=== PATIENT | male | born 1960 | race African-American/Black ===

== ENCOUNTER 2016-09-30 16:58 | Inpatient (IN) | payer OTHER ==
[2016-09-30 19:06] VITALS: BMI 26.5
--- NOTE | 2016-09-30 19:41 | HP ---
COWS - Scale Resting Pulse: 1= [place] 81-100 Sweatin= Chills/Flushing Restless Observation: 3= Extraneous Movement Pupil Size: 0= Normal to Room Light Bone or Joint Aches: 2= Severe Diffuse Aches Runny Nose/ Eye Tearin= Runny Nose/Eyes GI Upset > 30mins: 3= Vomiting/Diarrhea Tremor Observation: 2= Slight Tremor Visible Yawning Observation: 1= 1-2x During Session Anxiety or Irritability: 2=Irritable/Anxious Goose Flesh Skin: 0=Smooth Skin COWS Score: 17 Admission ROS S - [facility] Chief Complaint: WITHDRAWAL SX Allergies/Adverse Reactions: Allergies Allergy/AdvReac Type Severity Reaction Status Date / Time No Known Allergies Allergy Verified 09/30/16 19:38 History of Present Illness: 56 YEARS OLD MALE WITH LONG HISTORY OF OPIATE NICOTINE DEPENDENCE, HAS DIABETES II HYPERTENSION GERD AND DEPRESSION IS ADMITTED TO DETOX Exam Limitations: No Limitations - Ebola screening Have you traveled outside of the country in the last 21 days: No Have you had contact with anyone from an Ebola affected area: No Have you been sick,other than usual withdrawal symptoms: No Do you have a fever: No - Review of Systems Constitutional: Chills, Loss of Appetite, Changes in sleep, Unexplained wgt Loss EENT: reports: Other (EYE GLASSES) Respiratory: reports: No Symptoms reported Cardiac: reports: No Symptoms Reported GI: reports: Diarrhea, Nausea, Poor Appetite, Poor Fluid Intake, Vomiting, Indigestion, Abdominal cramping : reports: No Symptoms Reported Musculoskeletal: reports: Joint Pain Integumentary: reports: No Symptoms Reported Neuro: reports: Tremors Endocrine: reports: No Symptoms Reported Hematology: reports: No Symptoms Reported Psychiatric: reports: Judgement Intact, Orientated x3, Depressed Other Systems: Reviewed and Negative Patient History - Patient Medical History Hx Anemia: No Hx Asthma: No Hx Chronic Obstructive Pulmonary Disease (COPD): No Hx Cancer: No Hx Cardiac Disorders: No Hx Congestive Heart Failure: No Hx Hypertension: Yes Hx Hypercholesterolemia: No Hx Pacemaker: No HX Cerebrovascular Accident: No Hx Seizures: No Hx Dementia: No Hx Diabetes: Yes Hx Gastrointestinal Disorders: Yes Hx Liver Disease: No Hx Genitourinary Disorders: No Hx Sexually Transmitted Disorders: No Hx Renal Disease (ESRD): No Hx Thyroid Disease: No Hx Human Immunodeficiency Virus (HIV): No Hx Hepatitis C: Yes Hx Depression: Yes Hx Suicide Attempt: No Hx Bipolar Disorder: No Hx Schizophrenia: No - Patient Surgical History Past Surgical History: Yes Hx Neurologic Surgery: No Hx Cataract Extraction: No Hx Cardiac Surgery: No Hx Lung Surgery: No Hx Breast Surgery: No Hx Breast Biopsy: No Hx Abdominal Surgery: No Hx Appendectomy: Yes (2005) Hx Cholecystectomy: No Hx Genitourinary Surgery: No Hx Orthopedic Surgery: No Anesthesia Reaction: No - PPD History Previous Implant?: Yes Documented Results: Negative w/o proof Implanted On Prior [facility] Admission?: No PPD to be Administered?: Yes - Smoking Cessation Smoking history: Current every day smoker Have you smoked in the past 12 months: Yes Aproximately how many cigarettes per day: 10 Cigars Per Day: 0 Hx Chewing Tobacco Use: No Initiated information on smoking cessation: Yes 'Breaking Loose' booklet given: 09/30/16 - Substance & Tx. History Hx Alcohol Use: No Hx Substance Use: Yes Substance Use Type: Heroin Hx Substance Use Treatment: Yes - Substances Abused Heroin Route: Inhalation Frequency: Daily Amount used: 4 BAGS Age of first use: 30 Date of Last Use: 09/30/16 Family Disease History - Family Disease History Family Disease History: Diabetes: Mother, Brother, Sister, [place]: Father Admission Physical Exam S - Vital Signs Vital Signs: Vital Signs - 24 hr 09/30/16 19:04 Temperature 99.2 F Pulse Rate 98 H Respiratory 18 Rate Blood Pressure 131/81 - Physical General Appearance: Yes: Appropriately Dressed, Mild Distress, Thin, Tremorous, Irritable, Sweating, Anxious HEENTM: Yes: Hearing grossly Normal, Normal ENT Inspection, Normocephalic, Normal Voice Respiratory: Yes: Chest Non-Tender, Lungs Clear, Normal Breath Sounds, No Respiratory Distress, No Accessory Muscle Use Neck: Yes: Supple, Trachea in good position Breast: Yes: Breasts Symetrical Cardiology: Yes: Regular Rhythm, Regular Rate, S1, S2 Abdominal: Yes: Non Tender, Soft Genitourinary: Yes: Within Normal Limits Back: Yes: Normal Inspection Musculoskeletal: Yes: full range of Motion, Gait Steady Extremities: Yes: Normal Range of Motion, Non-Tender, Tremors Neurological: Yes: Fully Oriented, Alert, Motor Strength 5/5, Normal Response, Depressed Affect Integumentary: Yes: Warm, Moist Lymphatic: Yes: Within Normal Limits - Diagnostic (1) Opioid dependence with withdrawal Current Visit: Yes Status: Acute (2) Diabetes mellitus type II, controlled Current Visit: Yes Status: Acute Qualifiers: Diabetes mellitus complication status: with neurologic complications Diabetes mellitus complication detail: with polyneuropathy Diabetes mellitus residential insulin use: with residential use Qualified Code(s): E11.42 - Type 2 diabetes mellitus with diabetic polyneuropathy; Z79.4 - termite treater helper (current) use of insulin (3) Hypertension Current Visit: Yes Status: Acute Qualifiers: Hypertension type: essential hypertension Qualified Code(s): I10 - Essential (primary) hypertension (4) GERD (gastroesophageal reflux disease) Current Visit: Yes Status: Acute Qualifiers: Esophagitis presence: without esophagitis Qualified Code(s): K21.9 - Gastro-esophageal reflux disease without esophagitis (5) Depression Current Visit: Yes Status: Suspected Qualifiers: Depression Type: dysthymia Qualified Code(s): F34.1 - Dysthymic disorder (6) Weight loss Current Visit: Yes Status: Acute (7) Nicotine dependence Current Visit: Yes Status: Acute Qualifiers: Nicotine product type: cigarettes Substance use status: uncomplicated Qualified Code(s): F17.210 - Nicotine dependence, cigarettes, uncomplicated Cleared for Admission [facility] - Detox or Rehab [facility] Level of Care: Medically Managed Detox Regimen/Protocol: Methadone [facility] Breath Alcohol Content Breath Alcohol Content: 0 Urine Drug Screen - Results Drug Screen Negative: No Urine Drug Screen Results: QUINTON-Cocaine, OPI-Opiates, TCA-Tricyclic Antidepress
[2016-09-30] MEDS ORDERED: MAGNESIUM CITRATE 300 ML BOTTLE PO PRN (19:46)
[2016-09-30] MEDS ORDERED: NICOTINE POLACRILEX 2 MG GUM BC PRN (19:46)
[2016-09-30] MEDS ORDERED: MAG HYDROX/AL HYDROX/SIMETH 30 ML UNIT-DOSE CUP PO PRN (19:46)
[2016-09-30] MEDS ORDERED: MENTHOL/PHENOL 1 EACH UD MM PRN (19:46)
[2016-09-30] MEDS ORDERED: MAGNESIUM HYDROX 2400MG/30ML ORAL SUSPENSION 30 ML CUP PO PRN (19:46)
[2016-09-30] MEDS ORDERED: guaiFENesin/D-METHORPHAN HB 10 ML UNIT-DOSE CUPS PO PRN (19:46)
[2016-09-30] MEDS ORDERED: LOPERAMIDE HCL 2 MG CAPSULE PO PRN (19:46)
[2016-09-30] MEDS ORDERED: METHADONE HCL 10 MG TABLET (FOR DETOX USE ONLY) PO ONE ×2 (19:46→23:00)
[2016-09-30] MEDS ORDERED: P-EPHED 60MG/TRIPROLIDI 2.5MG TABLET PO PRN (19:46)
[2016-09-30] MEDS ORDERED: ACETAMINOPHEN 325 MG TABLET (FP) PO PRN (19:46)
[2016-09-30] MEDS ORDERED: IBUPROFEN 400 MG TABLET (FP) PO PRN (19:46)
[2016-09-30] MEDS ORDERED: ONDANSETRON *ODT* 4 MG TABLET SL PRN (19:50)
[2016-09-30] MEDS ORDERED: COLLOIDAL OATMEAL 1 BAR EACH TP PRN (19:51)
[2016-09-30] MEDS ORDERED: cloNIDine HCL 0.1 MG TABLET PO PRN (19:54)
[2016-09-30] MEDS ORDERED: METHADONE HCL 10 MG TABLET (FOR DETOX USE ONLY) ONE (22:14)
[2016-09-30] MEDS: MINERAL OIL/PETROLAT/WATER TOPICAL CREAM 113 GM JAR TP SCH (22:31)
[2016-09-30] MEDS: diazePAM 5 MG TABLET PO PRN (22:31)
[2016-09-30] MEDS: RANITIDINE HCL 150 MG TABLET (FP) PO SCH (22:32)
[2016-09-30] MEDS: THIAMINE HCL 100 MG TABLET (FP) PO SCH (22:32)
[2016-09-30] MEDS: INSULIN SLIDING SCALE (NOVOLOG) 1 VIAL SQ SCH (22:36)
[2016-09-30 23:16] LABS: URINE APPEARANCE SLCLOUDY; URINE BILIRUBIN NEGATIVE (NEGATIVE); URINE BLOOD NEGATIVE (NEGATIVE); URINE COLOR YELLOW; URINE GLUCOSE (UA) 1+ (NEGATIVE); URINE KETONE 1+ (NEGATIVE); URINE LEUK ESTERASE NEGATIVE (NEGATIVE); URINE NITRITE NEGATIVE (NEGATIVE); URINE PROTEIN 2+ (NEGATIVE); URINE UROBILINOGEN NEGATIVE E.U./dl (0.2-1.0)
[2016-09-30 23:20] LABS: GRANULAR CASTS 1 /lpf; URINE BACTERIA RARE /hpf (NONE SEEN); URINE HYALINE CAST 4 /lpf; URINE MUCUS FEW; URINE RBC <1 /hpf (0-3); URINE WBC 3 /hpf (3-5)
[2016-10-01] MEDS: diazePAM 5 MG TABLET PO PRN (05:36)
[2016-10-01] MEDS: INSULIN SLIDING SCALE (NOVOLOG) 1 VIAL SQ SCH ×4 (06:11→21:06)
[2016-10-01] MEDS: metFORMIN HCL 500 MG TABLET (FP) PO SCH ×2 (08:45→17:13)
[2016-10-01 09:59] LABS: MCH 28.6 pg (25.7-33.7); MCHC 32.4 g/dl (32.0-35.9); MEAN CELL VOLUME 88.3 fl (80-96); MEAN PLT VOLUME 9.1 fl (7.5-11.1); PLATELET COUNT 296 K/MM3 (134-434); RDW 14.3 % (11.9-15.9); WHITE BLOOD COUNT 13.4 K/mm3 (4.0-10.0)
[2016-10-01] MEDS ORDERED: METHADONE HCL 10 MG TABLET (FOR DETOX USE ONLY) PO ONE (10:00)
[2016-10-01] MEDS: RANITIDINE HCL 150 MG TABLET (FP) PO SCH ×2 (10:24→22:23)
[2016-10-01] MEDS: NICOTINE 14 MG/24 HOURS TOPICAL PATCH TD SCH (10:24)
[2016-10-01] MEDS: amLODIPine BESYLATE 10 MG TABLET (FP) PO SCH (10:24)
[2016-10-01] MEDS: PRENATAL VITAMINS W/ FOLIC ACID TABLET (FP) PO SCH (10:24)
[2016-10-01] MEDS: cloNIDine HCL 0.1 MG TABLET PO SCH ×2 (10:25→22:24)
[2016-10-01 10:47] LABS: ALBUMIN 3.2 g/dl (3.4-5.0); BILIRUBIN,TOTAL 0.5 mg/dL (0.2-1.0); CALCIUM 8.9 mg/dL (8.5-10.1); CREATININE 1.9 mg/dL (0.7-1.3)
--- NOTE | 2016-10-01 10:57 | EKG ---
Test Reason : Blood Pressure : / mmHG Vent. Rate : 081 BPM Atrial Rate : 081 BPM P-R Int : 140 ms QRS Dur : 078 ms QT Int : 408 ms P-R-T Axes : 072 051 -45 degrees QTc Int : 473 ms NORMAL SINUS RHYTHM WITH SINUS ARRHYTHMIA POSSIBLE LEFT ATRIAL ENLARGEMENT SEPTAL INFARCT , AGE UNDETERMINED ABNORMAL ECG WHEN COMPARED WITH ECG OF 30-SEP-2016 22:09, LIKELY NO SIGNIFICANT CHANGES WERE SEEN Confirmed by MATEO HEMPHILL, LC ([id number]) on 10/01/2016 10:57:10 AM Referred By: Confirmed By:LC GALINDO MD
--- NOTE | 2016-10-01 11:14 | PN ---
S COWS - Scale Resting Pulse: 1= [place] 81-100 Sweatin= Chills/Flushing Restless Observation: 1= Difficult to Sit Still Pupil Size: 1= Pupils >than Normal Bone or Joint Aches: 1= Mild Discomfort Runny Nose/ Eye Tearin= Nasal Congestion GI Upset > 30mins: 2= Nausea/Diarrhea Tremor Observation of Outstretched Hands: 2= Slight Tremor Visible Yawning Observation: 1= 1-2x During Session Anxiety or Irritability: 2=Irritable/Anxious Goose Flesh Skin: 3=Piloerection COWS Score: 16 S Progress Note (SOAP) Subjective: nausea, sweats, interrutped sleep, anxiety, tremor Objective: 10/01/16 11:13 Vital Signs - 24 hr 09/30/16 09/30/16 10/01/16 19:04 22:38 00:18 Temperature 99.2 F 97.8 F Pulse Rate 98 H 101 H Respiratory 18 18 18 Rate Blood Pressure 131/81 155/110 10/01/16 10/01/16 10/01/16 03:40 06:32 09:36 Temperature 97.8 F 96.4 F L Pulse Rate 92 H 88 Respiratory 18 18 18 Rate Blood Pressure 145/108 166/106 Laboratory Tests 09/30/16 09/30/16 10/01/16 19:59 23:00 05:35 WBC RBC Hgb Hct MCV MCHC RDW Plt Count MPV Sodium Potassium Chloride Carbon Dioxide Anion Gap BUN Creatinine Creat Clearance w eGFR POC Glucometer 165 142 Random Glucose Calcium Total Bilirubin AST ALT Alkaline Phosphatase Total Protein Albumin Urine Color Yellow Urine Appearance Slcloudy Urine pH 7.0 Ur Specific [place] 1.019 Urine Protein 2+ H Urine Glucose (UA) 1+ H Urine Ketones 1+ H Urine Blood Negative Urine Nitrite Negative Urine Bilirubin Negative Urine Urobilinogen Negative Ur Leukocyte Esterase Negative Urine RBC <1 Urine WBC 3 Ur Epithelial Cells Rare Urine Bacteria Rare Hyaline Casts 4 Granular Casts 1 Urine Mucus Few 10/01/16 10/01/16 07:00 07:00 WBC 13.4 H RBC 4.57 Hgb 13.1 Hct 40.3 MCV 88.3 MCHC 32.4 RDW 14.3 Plt Count 296 MPV 9.1 Sodium 140 Potassium 3.6 Chloride 100 Carbon Dioxide 30 Anion Gap 10 BUN 24 H Creatinine 1.9 H Creat Clearance w eGFR 36.72 POC Glucometer Random Glucose 189 H Calcium 8.9 Total Bilirubin 0.5 AST 13 L ALT 32 Alkaline Phosphatase 96 Total Protein 6.0 L Albumin 3.2 L Urine Color Urine Appearance Urine pH Ur Specific [place] Urine Protein Urine Glucose (UA) Urine Ketones Urine Blood Urine Nitrite Urine Bilirubin Urine Urobilinogen Ur Leukocyte Esterase Urine RBC Urine WBC Ur Epithelial Cells Urine Bacteria Hyaline Casts Granular Casts Urine Mucus elevated bun and creatinine, hyperglycemia, elevated bp, tachycardai Assessment: 10/01/16 11:14 withdrawal sx, dehydration Plan: cont detox, fluids, restart norvasc, clonidine, FS achs
--- NOTE | 2016-10-01 11:39 | CONSULT ---
[facility] Psychiatric Consult - Data Date of interview: 10/01/16 Admission source: [facility] Identifying data: First admission to [facility] for this 56 y/o AA male seeking detox treatment on for heroin and cocaine dependence.Patient is single, a father of three,domiciled,unemployed and supported on Public Assistance. Substance Abuse History: - Smoking Cessation. Smoking history: Current every day smoker. Have you smoked in the past 12 months: Yes. Aproximately how many cigarettes per day: 10. Cigars Per Day: 0. Hx Chewing Tobacco Use: No. Initiated information on smoking cessation: Yes. 'Breaking Loose' booklet given : 09/30/16. - Substance & Tx. History. Hx Alcohol Use: No. Hx Substance Use: Yes. Substance Use Type: Heroin. Hx Substance Use Treatment: Yes. - Substances Abused. Heroin. Route: Inhalation. Frequency: Daily. Amount used: 4 BAGS. Age of first use: 30. Date of Last Use: 09/30/16. Confirmed by patient. Medical History: Diabetes mellitus,hepatitis C and hypertension. Psychiatric History: Patient denies. Physical/Sexual Abuse/Trauma History: Patient denies. Additional Comment: Urine Drug Screen Results: QUINTON-Cocaine, OPI-Opiates, TCA- Tricyclic Antidepressant.Noted. Mental Status Exam - Mental Status Exam Alert and Oriented to: Time, Place, Person Cognitive Function: Good Patient Appearance: Well Groomed Mood: Withdrawn Affect: Appropriate, Normal Range Patient Behavior: Fatigued, Appropriate, Cooperative Speech Pattern: Clear, Appropriate Voice Loudness: Normal Thought Process: Goal Oriented Thought Disorder: Not Present Hallucinations: Denies Suicidal Ideation: Denies Homicidal Ideation: Denies Insight/Judgement: Poor Sleep: Well Appetite: Good Muscle strength/Tone: Normal Gait/Station: Normal Psychiatric Findings - Problem List ([place] 1, 2,3) (1) Opioid dependence with withdrawal Current Visit: Yes Status: Acute (2) Nicotine dependence Current Visit: Yes Status: Acute Qualifiers: Nicotine product type: cigarettes Substance use status: uncomplicated Qualified Code(s): F17.210 - Nicotine dependence, cigarettes, uncomplicated (3) Cocaine dependence Current Visit: Yes Status: Acute (4) Diabetes mellitus type II, controlled Current Visit: Yes Status: Chronic Qualifiers: Diabetes mellitus complication status: with neurologic complications Diabetes mellitus complication detail: with polyneuropathy Diabetes mellitus terminologist insulin use: with terminologist use Qualified Code(s): E11.42 - Type 2 diabetes mellitus with diabetic polyneuropathy; Z79.4 - correction (current) use of insulin (5) GERD (gastroesophageal reflux disease) Current Visit: Yes Status: Chronic Qualifiers: Esophagitis presence: without esophagitis Qualified Code(s): K21.9 - Gastro-esophageal reflux disease without esophagitis (6) Hypertension Current Visit: Yes Status: Chronic Qualifiers: Hypertension type: essential hypertension Qualified Code(s): I10 - Essential (primary) hypertension - Initial Treatment Plan Initial Treatment Plan: Psychoeducation.Detoxification.Observation.
[2016-10-01] MEDS: RAMIPRIL 5 MG CAPSULE (FP) PO SCH (12:14)
--- NOTE | 2016-10-01 12:46 | EKG ---
Test Reason : Blood Pressure : / mmHG Vent. Rate : 088 BPM Atrial Rate : 088 BPM P-R Int : 136 ms QRS Dur : 074 ms QT Int : 388 ms P-R-T Axes : 068 045 -71 degrees QTc Int : 469 ms SINUS RHYTHM WITH PREMATURE ATRIAL COMPLEXES POSSIBLE LEFT ATRIAL ENLARGEMENT PROLONGED QT ABNORMAL ECG NO PREVIOUS ECGS AVAILABLE Confirmed by LC GALINDO MD ([id number]) on 10/01/2016 12:46:10 PM Referred By: Confirmed By:LC GALINDO MD
[2016-10-01] MEDS ORDERED: INSULIN (NOVOLOG) ASPART 100 UNITS/ML 10ML VIAL ONE (16:39)
[2016-10-01] MEDS: THIAMINE HCL 100 MG TABLET (FP) PO SCH (22:23)
[2016-10-01] MEDS: MINERAL OIL/PETROLAT/WATER TOPICAL CREAM 113 GM JAR TP SCH (22:24)
[2016-10-02] MEDS: diazePAM 5 MG TABLET PO PRN ×2 (06:03→17:28)
[2016-10-02] MEDS: INSULIN SLIDING SCALE (NOVOLOG) 1 VIAL SQ SCH ×4 (06:22→21:38)
--- NOTE | 2016-10-02 09:36 | PN ---
S COWS - Scale Resting Pulse: 1= [place] 81-100 Sweatin= Chills/Flushing Restless Observation: 1= Difficult to Sit Still Pupil Size: 1= Pupils >than Normal Bone or Joint Aches: 1= Mild Discomfort Runny Nose/ Eye Tearin= Nasal Congestion GI Upset > 30mins: 2= Nausea/Diarrhea Tremor Observation of Outstretched Hands: 2= Slight Tremor Visible Yawning Observation: 1= 1-2x During Session Anxiety or Irritability: 2=Irritable/Anxious Goose Flesh Skin: 3=Piloerection COWS Score: 16 S Progress Note (SOAP) Subjective: nausea, sweats, interrupted sleep, anxiety, tremor Objective: 10/02/16 09:35 Vital Signs - 8 hr 10/02/16 10/02/16 06:36 09:31 Temperature 97.3 F L 98.7 F Pulse Rate 78 73 Respiratory 16 18 Rate Blood Pressure 99/66 134/78 Laboratory Tests 09/30/16 09/30/16 10/01/16 19:59 23:00 05:35 WBC RBC Hgb Hct MCV MCHC RDW Plt Count MPV Sodium Potassium Chloride Carbon Dioxide Anion Gap BUN Creatinine Creat Clearance w eGFR POC Glucometer 165 142 Random Glucose Calcium Total Bilirubin AST ALT Alkaline Phosphatase Total Protein Albumin Urine Color Yellow Urine Appearance Slcloudy Urine pH 7.0 Ur Specific [place] 1.019 Urine Protein 2+ H Urine Glucose (UA) 1+ H Urine Ketones 1+ H Urine Blood Negative Urine Nitrite Negative Urine Bilirubin Negative Urine Urobilinogen Negative Ur Leukocyte Esterase Negative Urine RBC <1 Urine WBC 3 Ur Epithelial Cells Rare Urine Bacteria Rare Hyaline Casts 4 Granular Casts 1 Urine Mucus Few RPR Titer 10/01/16 10/01/16 10/01/16 07:00 07:00 07:00 WBC 13.4 H RBC 4.57 Hgb 13.1 Hct 40.3 MCV 88.3 MCHC 32.4 RDW 14.3 Plt Count 296 MPV 9.1 Sodium 140 Potassium 3.6 Chloride 100 Carbon Dioxide 30 Anion Gap 10 BUN 24 H Creatinine 1.9 H Creat Clearance w eGFR 36.72 POC Glucometer Random Glucose 189 H Calcium 8.9 Total Bilirubin 0.5 AST 13 L ALT 32 Alkaline Phosphatase 96 Total Protein 6.0 L Albumin 3.2 L Urine Color Urine Appearance Urine pH Ur Specific [place] Urine Protein Urine Glucose (UA) Urine Ketones Urine Blood Urine Nitrite Urine Bilirubin Urine Urobilinogen Ur Leukocyte Esterase Urine RBC Urine WBC Ur Epithelial Cells Urine Bacteria Hyaline Casts Granular Casts Urine Mucus RPR Titer Nonreactive 10/01/16 10/01/16 10/01/16 11:19 16:12 21:03 WBC RBC Hgb Hct MCV MCHC RDW Plt Count MPV Sodium Potassium Chloride Carbon Dioxide Anion Gap BUN Creatinine Creat Clearance w eGFR POC Glucometer 189 174 146 Random Glucose Calcium Total Bilirubin AST ALT Alkaline Phosphatase Total Protein Albumin Urine Color Urine Appearance Urine pH Ur Specific [place] Urine Protein Urine Glucose (UA) Urine Ketones Urine Blood Urine Nitrite Urine Bilirubin Urine Urobilinogen Ur Leukocyte Esterase Urine RBC Urine WBC Ur Epithelial Cells Urine Bacteria Hyaline Casts Granular Casts Urine Mucus RPR Titer 10/02/16 06:03 WBC RBC Hgb Hct MCV MCHC RDW Plt Count MPV Sodium Potassium Chloride Carbon Dioxide Anion Gap BUN Creatinine Creat Clearance w eGFR POC Glucometer 129 Random Glucose Calcium Total Bilirubin AST ALT Alkaline Phosphatase Total Protein Albumin Urine Color Urine Appearance Urine pH Ur Specific [place] Urine Protein Urine Glucose (UA) Urine Ketones Urine Blood Urine Nitrite Urine Bilirubin Urine Urobilinogen Ur Leukocyte Esterase Urine RBC Urine WBC Ur Epithelial Cells Urine Bacteria Hyaline Casts Granular Casts Urine Mucus RPR Titer Assessment: 10/02/16 09:35 withdrawal sx, hyperglycemia, bp well cotnrolled Plan: cont detox, encoruage fluids
[2016-10-02] MEDS ORDERED: METHADONE HCL 5 MG TABLET (FOR DETOX USE ONLY) PO ONE (10:00)
[2016-10-02] MEDS: metFORMIN HCL 500 MG TABLET (FP) PO SCH ×2 (10:18→17:25)
[2016-10-02] MEDS: cloNIDine HCL 0.1 MG TABLET PO SCH (10:18)
[2016-10-02] MEDS: PRENATAL VITAMINS W/ FOLIC ACID TABLET (FP) PO SCH (10:18)
[2016-10-02] MEDS: NICOTINE 14 MG/24 HOURS TOPICAL PATCH TD SCH (10:18)
[2016-10-02] MEDS: RAMIPRIL 5 MG CAPSULE (FP) PO SCH (10:18)
[2016-10-02] MEDS: amLODIPine BESYLATE 10 MG TABLET (FP) PO SCH (10:18)
[2016-10-02] MEDS: RANITIDINE HCL 150 MG TABLET (FP) PO SCH ×2 (10:18→22:26)
[2016-10-02] MEDS ORDERED: INSULIN (NOVOLOG) ASPART 100 UNITS/ML 10ML VIAL ONE (11:24)
[2016-10-02] MEDS: THIAMINE HCL 100 MG TABLET (FP) PO SCH (22:26)
[2016-10-02] MEDS: diphenhydrAMINE HCL 50 MG CAPSULE PO PRN (22:27)
[2016-10-02] MEDS: MINERAL OIL/PETROLAT/WATER TOPICAL CREAM 113 GM JAR TP SCH (22:28)
[2016-10-03] MEDS: diazePAM 5 MG TABLET PO PRN (05:38)
[2016-10-03] MEDS ORDERED: METHADONE HCL 5 MG TABLET (FOR DETOX USE ONLY) PO ONE (10:00)
[2016-10-03] MEDS: PRENATAL VITAMINS W/ FOLIC ACID TABLET (FP) PO SCH (10:22)
[2016-10-03] MEDS: amLODIPine BESYLATE 10 MG TABLET (FP) PO SCH (10:22)
[2016-10-03] MEDS: RANITIDINE HCL 150 MG TABLET (FP) PO SCH ×2 (10:22→22:21)
[2016-10-03] MEDS: RAMIPRIL 5 MG CAPSULE (FP) PO SCH (10:22)
[2016-10-03] MEDS: metFORMIN HCL 500 MG TABLET (FP) PO SCH ×2 (10:23→17:30)
[2016-10-03] MEDS: INSULIN SLIDING SCALE (NOVOLOG) 1 VIAL SQ SCH ×4 (10:23→21:12)
[2016-10-03] MEDS: NICOTINE 14 MG/24 HOURS TOPICAL PATCH TD SCH (10:23)
[2016-10-03] MEDS: cloNIDine HCL 0.1 MG TABLET PO SCH (10:23)
--- NOTE | 2016-10-03 12:47 | PN ---
[facility] Progress Note (SOAP) Subjective: nausea, sweats, interrupted sleep, anxiety, tremor Objective: 10/03/16 12:43 Vital Signs - 24 hr 10/02/16 10/02/16 10/02/16 13:59 17:26 22:41 Temperature 96.9 F L 97.4 F L 97.8 F Pulse Rate 85 62 62 Respiratory 18 18 20 Rate Blood Pressure 102/68 96/57 91/62 10/03/16 10/03/16 10/03/16 03:46 06:34 10:04 Temperature 97.6 F 97.9 F Pulse Rate 67 77 Respiratory 18 18 20 Rate Blood Pressure 121/73 102/66 Laboratory Tests 09/30/16 09/30/16 10/01/16 19:59 23:00 05:35 WBC RBC Hgb Hct MCV MCHC RDW Plt Count MPV Sodium Potassium Chloride Carbon Dioxide Anion Gap BUN Creatinine Creat Clearance w eGFR POC Glucometer 165 142 Random Glucose Calcium Total Bilirubin AST ALT Alkaline Phosphatase Total Protein Albumin Urine Color Yellow Urine Appearance Slcloudy Urine pH 7.0 Ur Specific [place] 1.019 Urine Protein 2+ H Urine Glucose (UA) 1+ H Urine Ketones 1+ H Urine Blood Negative Urine Nitrite Negative Urine Bilirubin Negative Urine Urobilinogen Negative Ur Leukocyte Esterase Negative Urine RBC <1 Urine WBC 3 Ur Epithelial Cells Rare Urine Bacteria Rare Hyaline Casts 4 Granular Casts 1 Urine Mucus Few RPR Titer 10/01/16 10/01/16 10/01/16 07:00 07:00 07:00 WBC 13.4 H RBC 4.57 Hgb 13.1 Hct 40.3 MCV 88.3 MCHC 32.4 RDW 14.3 Plt Count 296 MPV 9.1 Sodium 140 Potassium 3.6 Chloride 100 Carbon Dioxide 30 Anion Gap 10 BUN 24 H Creatinine 1.9 H Creat Clearance w eGFR 36.72 POC Glucometer Random Glucose 189 H Calcium 8.9 Total Bilirubin 0.5 AST 13 L ALT 32 Alkaline Phosphatase 96 Total Protein 6.0 L Albumin 3.2 L Urine Color Urine Appearance Urine pH Ur Specific [place] Urine Protein Urine Glucose (UA) Urine Ketones Urine Blood Urine Nitrite Urine Bilirubin Urine Urobilinogen Ur Leukocyte Esterase Urine RBC Urine WBC Ur Epithelial Cells Urine Bacteria Hyaline Casts Granular Casts Urine Mucus RPR Titer Nonreactive 10/01/16 10/01/16 10/01/16 11:19 16:12 21:03 WBC RBC Hgb Hct MCV MCHC RDW Plt Count MPV Sodium Potassium Chloride Carbon Dioxide Anion Gap BUN Creatinine Creat Clearance w eGFR POC Glucometer 189 174 146 Random Glucose Calcium Total Bilirubin AST ALT Alkaline Phosphatase Total Protein Albumin Urine Color Urine Appearance Urine pH Ur Specific [place] Urine Protein Urine Glucose (UA) Urine Ketones Urine Blood Urine Nitrite Urine Bilirubin Urine Urobilinogen Ur Leukocyte Esterase Urine RBC Urine WBC Ur Epithelial Cells Urine Bacteria Hyaline Casts Granular Casts Urine Mucus RPR Titer 10/02/16 10/02/16 10/02/16 06:03 11:21 15:39 WBC RBC Hgb Hct MCV MCHC RDW Plt Count MPV Sodium Potassium Chloride Carbon Dioxide Anion Gap BUN Creatinine Creat Clearance w eGFR POC Glucometer 129 254 148 Random Glucose Calcium Total Bilirubin AST ALT Alkaline Phosphatase Total Protein Albumin Urine Color Urine Appearance Urine pH Ur Specific [place] Urine Protein Urine Glucose (UA) Urine Ketones Urine Blood Urine Nitrite Urine Bilirubin Urine Urobilinogen Ur Leukocyte Esterase Urine RBC Urine WBC Ur Epithelial Cells Urine Bacteria Hyaline Casts Granular Casts Urine Mucus RPR Titer 10/03/16 10/03/16 05:37 11:29 WBC RBC Hgb Hct MCV MCHC RDW Plt Count MPV Sodium Potassium Chloride Carbon Dioxide Anion Gap BUN Creatinine Creat Clearance w eGFR POC Glucometer 177 147 Random Glucose Calcium Total Bilirubin AST ALT Alkaline Phosphatase Total Protein Albumin Urine Color Urine Appearance Urine pH Ur Specific [place] Urine Protein Urine Glucose (UA) Urine Ketones Urine Blood Urine Nitrite Urine Bilirubin Urine Urobilinogen Ur Leukocyte Esterase Urine RBC Urine WBC Ur Epithelial Cells Urine Bacteria Hyaline Casts Granular Casts Urine Mucus RPR Titer Assessment: 10/03/16 12:45 hypoalbuminemia 2/2 malnutrition related to substance use, VALARIE 2/2 dehydration related substance use Plan: cont detox, encourage fluids, dieaatery counseling provided re: healthy eating habits
[2016-10-03] MEDS ORDERED: INSULIN (NOVOLOG) ASPART 100 UNITS/ML 10ML VIAL ONE (16:51)
[2016-10-03] MEDS: THIAMINE HCL 100 MG TABLET (FP) PO SCH (22:21)
[2016-10-03] MEDS: MINERAL OIL/PETROLAT/WATER TOPICAL CREAM 113 GM JAR TP SCH (22:23)
[2016-10-04] MEDS: metFORMIN HCL 500 MG TABLET (FP) PO SCH ×2 (07:17→17:27)
[2016-10-04] MEDS: INSULIN SLIDING SCALE (NOVOLOG) 1 VIAL SQ SCH ×4 (07:17→21:19)
[2016-10-04] MEDS ORDERED: METHADONE HCL 10 MG TABLET (FOR DETOX USE ONLY) PO ONE (10:00)
[2016-10-04] MEDS: amLODIPine BESYLATE 10 MG TABLET (FP) PO SCH (10:24)
[2016-10-04] MEDS: PRENATAL VITAMINS W/ FOLIC ACID TABLET (FP) PO SCH (10:24)
[2016-10-04] MEDS: RAMIPRIL 5 MG CAPSULE (FP) PO SCH (10:24)
[2016-10-04] MEDS: NICOTINE 14 MG/24 HOURS TOPICAL PATCH TD SCH (10:24)
[2016-10-04] MEDS: RANITIDINE HCL 150 MG TABLET (FP) PO SCH ×2 (10:24→22:17)
[2016-10-04] MEDS: cloNIDine HCL 0.1 MG TABLET PO SCH (10:24)
--- NOTE | 2016-10-04 11:32 | PN ---
[facility] Progress Note (SOAP) Subjective: nause, sweats, interrupted sleep, anxiety, tremor Objective: 10/04/16 11:31 Vital Signs - 24 hr 10/03/16 10/03/16 10/03/16 13:37 18:04 21:41 Temperature 98.1 F 95.4 F L 97.1 F L Pulse Rate 81 69 71 Respiratory 20 20 20 Rate Blood Pressure 130/70 97/61 115/71 10/04/16 10/04/16 10/04/16 00:12 06:28 09:59 Temperature 97.3 F L 95.7 F L Pulse Rate 73 72 Respiratory 18 18 18 Rate Blood Pressure 126/81 144/78 Laboratory Tests 09/30/16 09/30/16 10/01/16 19:59 23:00 05:35 WBC RBC Hgb Hct MCV MCHC RDW Plt Count MPV Sodium Potassium Chloride Carbon Dioxide Anion Gap BUN Creatinine Creat Clearance w eGFR POC Glucometer 165 142 Random Glucose Calcium Total Bilirubin AST ALT Alkaline Phosphatase Total Protein Albumin Urine Color Yellow Urine Appearance Slcloudy Urine pH 7.0 Ur Specific [place] 1.019 Urine Protein 2+ H Urine Glucose (UA) 1+ H Urine Ketones 1+ H Urine Blood Negative Urine Nitrite Negative Urine Bilirubin Negative Urine Urobilinogen Negative Ur Leukocyte Esterase Negative Urine RBC <1 Urine WBC 3 Ur Epithelial Cells Rare Urine Bacteria Rare Hyaline Casts 4 Granular Casts 1 Urine Mucus Few RPR Titer 10/01/16 10/01/16 10/01/16 07:00 07:00 07:00 WBC 13.4 H RBC 4.57 Hgb 13.1 Hct 40.3 MCV 88.3 MCHC 32.4 RDW 14.3 Plt Count 296 MPV 9.1 Sodium 140 Potassium 3.6 Chloride 100 Carbon Dioxide 30 Anion Gap 10 BUN 24 H Creatinine 1.9 H Creat Clearance w eGFR 36.72 POC Glucometer Random Glucose 189 H Calcium 8.9 Total Bilirubin 0.5 AST 13 L ALT 32 Alkaline Phosphatase 96 Total Protein 6.0 L Albumin 3.2 L Urine Color Urine Appearance Urine pH Ur Specific [place] Urine Protein Urine Glucose (UA) Urine Ketones Urine Blood Urine Nitrite Urine Bilirubin Urine Urobilinogen Ur Leukocyte Esterase Urine RBC Urine WBC Ur Epithelial Cells Urine Bacteria Hyaline Casts Granular Casts Urine Mucus RPR Titer Nonreactive 10/01/16 10/01/16 10/01/16 11:19 16:12 21:03 WBC RBC Hgb Hct MCV MCHC RDW Plt Count MPV Sodium Potassium Chloride Carbon Dioxide Anion Gap BUN Creatinine Creat Clearance w eGFR POC Glucometer 189 174 146 Random Glucose Calcium Total Bilirubin AST ALT Alkaline Phosphatase Total Protein Albumin Urine Color Urine Appearance Urine pH Ur Specific [place] Urine Protein Urine Glucose (UA) Urine Ketones Urine Blood Urine Nitrite Urine Bilirubin Urine Urobilinogen Ur Leukocyte Esterase Urine RBC Urine WBC Ur Epithelial Cells Urine Bacteria Hyaline Casts Granular Casts Urine Mucus RPR Titer 10/02/16 10/02/16 10/02/16 06:03 11:21 15:39 WBC RBC Hgb Hct MCV MCHC RDW Plt Count MPV Sodium Potassium Chloride Carbon Dioxide Anion Gap BUN Creatinine Creat Clearance w eGFR POC Glucometer 129 254 148 Random Glucose Calcium Total Bilirubin AST ALT Alkaline Phosphatase Total Protein Albumin Urine Color Urine Appearance Urine pH Ur Specific [place] Urine Protein Urine Glucose (UA) Urine Ketones Urine Blood Urine Nitrite Urine Bilirubin Urine Urobilinogen Ur Leukocyte Esterase Urine RBC Urine WBC Ur Epithelial Cells Urine Bacteria Hyaline Casts Granular Casts Urine Mucus RPR Titer 10/02/16 10/03/16 10/03/16 21:10 05:37 11:29 WBC RBC Hgb Hct MCV MCHC RDW Plt Count MPV Sodium Potassium Chloride Carbon Dioxide Anion Gap BUN Creatinine Creat Clearance w eGFR POC Glucometer 131 177 147 Random Glucose Calcium Total Bilirubin AST ALT Alkaline Phosphatase Total Protein Albumin Urine Color Urine Appearance Urine pH Ur Specific [place] Urine Protein Urine Glucose (UA) Urine Ketones Urine Blood Urine Nitrite Urine Bilirubin Urine Urobilinogen Ur Leukocyte Esterase Urine RBC Urine WBC Ur Epithelial Cells Urine Bacteria Hyaline Casts Granular Casts Urine Mucus RPR Titer 10/03/16 10/03/16 10/04/16 16:30 21:10 05:25 WBC RBC Hgb Hct MCV MCHC RDW Plt Count MPV Sodium Potassium Chloride Carbon Dioxide Anion Gap BUN Creatinine Creat Clearance w eGFR POC Glucometer 173 146 163 Random Glucose Calcium Total Bilirubin AST ALT Alkaline Phosphatase Total Protein Albumin Urine Color Urine Appearance Urine pH Ur Specific [place] Urine Protein Urine Glucose (UA) Urine Ketones Urine Blood Urine Nitrite Urine Bilirubin Urine Urobilinogen Ur Leukocyte Esterase Urine RBC Urine WBC Ur Epithelial Cells Urine Bacteria Hyaline Casts Granular Casts Urine Mucus RPR Titer elevated BUN, creatinine Assessment: 10/04/16 11:31 withdrawal sx, VALARIE 2/2 dehydration from substance use Plan: cont detox, encoruage fluids, ambulation
[2016-10-04] MEDS: THIAMINE HCL 100 MG TABLET (FP) PO SCH (22:17)
[2016-10-04] MEDS: diphenhydrAMINE HCL 50 MG CAPSULE PO PRN (22:17)
[2016-10-04] MEDS: MINERAL OIL/PETROLAT/WATER TOPICAL CREAM 113 GM JAR TP SCH (22:18)
[2016-10-05] MEDS ORDERED: METHADONE HCL 5 MG TABLET (FOR DETOX USE ONLY) PO ONE (06:00)
[2016-10-05] MEDS: metFORMIN HCL 500 MG TABLET (FP) PO SCH (06:11)
[2016-10-05] MEDS ORDERED: INSULIN (NOVOLOG) ASPART 100 UNITS/ML 10ML VIAL ONE ×2 (06:12→11:16)
[2016-10-05] MEDS: INSULIN SLIDING SCALE (NOVOLOG) 1 VIAL SQ SCH ×2 (06:12→11:15)
[2016-10-05] MEDS: cloNIDine HCL 0.1 MG TABLET PO SCH (09:06)
[2016-10-05] MEDS: amLODIPine BESYLATE 10 MG TABLET (FP) PO SCH (09:06)
[2016-10-05] MEDS: RAMIPRIL 5 MG CAPSULE (FP) PO SCH (09:06)
[2016-10-05] MEDS: PRENATAL VITAMINS W/ FOLIC ACID TABLET (FP) PO SCH (09:06)
[2016-10-05] MEDS: RANITIDINE HCL 150 MG TABLET (FP) PO SCH (09:07)
[2016-10-05] MEDS: NICOTINE 14 MG/24 HOURS TOPICAL PATCH TD SCH (09:07)
--- NOTE | 2016-10-05 09:14 | DS ---
[facility] Detox Discharge Summary Admission Date: 09/30/16 Discharge Date: 10/05/16 - History Present History: Cocaine Dependence, Opioid Dependence Pertinent Past History: DM II Hypertension GERD - Physical Exam Results Vital Signs: Vital Signs Temperature 96.7 F L 10/05/16 06:06 Pulse Rate 57 L 10/05/16 06:06 Respiratory Rate 18 10/05/16 06:06 Blood Pressure 121/82 10/05/16 06:06 O2 Sat by Pulse Oximetry (%) Laboratory Last Values WBC 13.4 K/mm3 (4.0-10.0) H 10/01/16 07:00 RBC 4.57 M/mm3 (4.00-5.60) 10/01/16 07:00 Hgb 13.1 GM/dL (11.7-16.9) 10/01/16 07:00 Hct 40.3 % (35.4-49) 10/01/16 07:00 MCV 88.3 fl (80-96) 10/01/16 07:00 MCHC 32.4 g/dl (32.0-35.9) 10/01/16 07:00 RDW 14.3 % (11.9-15.9) 10/01/16 07:00 Plt Count 296 K/MM3 (134-434) 10/01/16 07:00 MPV 9.1 fl (7.5-11.1) 10/01/16 07:00 Sodium 140 mmol/L (136-145) 10/01/16 07:00 Potassium 3.6 mmol/L (3.5-5.1) 10/01/16 07:00 Chloride 100 mmol/L (98-107) 10/01/16 07:00 Carbon Dioxide 30 mmol/L (21-32) 10/01/16 07:00 Anion Gap 10 (8-16) 10/01/16 07:00 BUN 24 mg/dL (7-18) H 10/01/16 07:00 Creatinine 1.9 mg/dL (0.7-1.3) H 10/01/16 07:00 Creat Clearance w eGFR 36.72 (>60) 10/01/16 07:00 POC Glucometer 199 UNITS (()) 10/05/16 05:34 Random Glucose 189 mg/dL (74-106) H 10/01/16 07:00 Calcium 8.9 mg/dL (8.5-10.1) 10/01/16 07:00 Total Bilirubin 0.5 mg/dL (0.2-1.0) 10/01/16 07:00 AST 13 U/L (15-37) L 10/01/16 07:00 ALT 32 U/L (12-78) 10/01/16 07:00 Alkaline Phosphatase 96 U/L (45-117) 10/01/16 07:00 Total Protein 6.0 g/dl (6.4-8.2) L 10/01/16 07:00 Albumin 3.2 g/dl (3.4-5.0) L 10/01/16 07:00 Urine Color Yellow 09/30/16 23:00 Urine Appearance Slcloudy 09/30/16 23:00 Urine pH 7.0 (5.0-8.0) 09/30/16 23:00 Ur Specific [place] 1.019 (1.001-1.035) 09/30/16 23:00 Urine Protein 2+ (NEGATIVE) H 09/30/16 23:00 Urine Glucose (UA) 1+ (NEGATIVE) H 09/30/16 23:00 Urine Ketones 1+ (NEGATIVE) H 09/30/16 23:00 Urine Blood Negative (NEGATIVE) 09/30/16 23:00 Urine Nitrite Negative (NEGATIVE) 09/30/16 23:00 Urine Bilirubin Negative (NEGATIVE) 09/30/16 23:00 Urine Urobilinogen Negative E.U./dl (0.2-1.0) 09/30/16 23:00 Ur Leukocyte Esterase Negative (NEGATIVE) 09/30/16 23:00 Urine RBC <1 /hpf (0-3) 09/30/16 23:00 Urine WBC 3 /hpf (3-5) 09/30/16 23:00 Ur Epithelial Cells Rare /hpf (FEW) 09/30/16 23:00 Urine Bacteria Rare /hpf (NONE SEEN) 09/30/16 23:00 Hyaline Casts 4 /lpf 09/30/16 23:00 Granular Casts 1 /lpf 09/30/16 23:00 Urine Mucus Few 09/30/16 23:00 RPR Titer Nonreactive (NONREACTIVE) 10/01/16 07:00 labs noted Pertinent Admission Physical Exam Findings: withdrawal symptoms - Treatment Hospital Course: Detox Protocol Followed, Detoxed Safely, Responded well, Discharged Condition Good, Rehab Referral Accepted Patient has Accepted a Rehab Referral to: yes - Medication Discharge Medications: Ambulatory Orders Amlodipine Besylate [Norvasc -] 10 mg PO DAILY 09/30/16 Metformin HCl [Glucophage -] 500 mg PO BID 09/30/16 Ramipril 5 mg PO DAILY 09/30/16 Sitagliptin Phosphate [Januvia] 25 mg PO DAILY 09/30/16 - Diagnosis (1) Cocaine dependence Current Visit: Yes Status: Acute (2) Opioid dependence with withdrawal Current Visit: Yes Status: Acute (3) Diabetes mellitus type II, controlled Current Visit: Yes Status: Chronic Qualifiers: Diabetes mellitus complication status: with neurologic complications Diabetes mellitus complication detail: with polyneuropathy Diabetes mellitus terminologist insulin use: with terminologist use Qualified Code(s): E11.42 - Type 2 diabetes mellitus with diabetic polyneuropathy; Z79.4 - terminologist (current) use of insulin (4) GERD (gastroesophageal reflux disease) Current Visit: Yes Status: Chronic Qualifiers: Esophagitis presence: without esophagitis Qualified Code(s): K21.9 - Gastro-esophageal reflux disease without esophagitis (5) Hypertension Current Visit: Yes Status: Chronic Qualifiers: Hypertension type: essential hypertension Qualified Code(s): I10 - Essential (primary) hypertension - AMA Did Patient Leave Against Medical Advice: No
[2016-10-05 10:39] VITALS: BP 154/95; PULSE 90; TEMP 99.2
== END 2016-10-05 11:31 | disposition other institution (70) | DRG 773 ==
LOC: YASAS 16:58 → Y3N 20:08
PROVIDERS: ADMIT Internal Medicine; ATTEND Internal Medicine
PROC: HZ2ZZZZ Detoxification Services for Substance Abuse Treatment (ICD-10-PCS; principal; 2016-09-30)
DX: F11.23 Opioid dependence with withdrawal (principal); F14.20 Cocaine dependence, uncomplicated; F17.210 Nicotine dependence, cigarettes, uncomplicated; F34.1 Dysthymic disorder; K21.9 Gastro-esophageal reflux disease without esophagitis; E11.42 Type 2 diabetes mellitus with diabetic polyneuropathy; E11.65 Type 2 diabetes mellitus with hyperglycemia; Z79.4 Long term (current) use of insulin; I10 Essential (primary) hypertension; R79.89 Other specified abnormal findings of blood chemistry; E86.0 Dehydration; E88.09 Other disorders of plasma-protein metabolism, not elsewhere classified; E46 Unspecified protein-calorie malnutrition; Z68.26 Body mass index [BMI] 26.0-26.9, adult; B18.2 Chronic viral hepatitis C; R00.0 Tachycardia, unspecified; Z87.898 Personal history of other specified conditions
CPT/HCPCS: 36415; 80053; 81003; 81015; 85027; 86593; 93005; 93010

== ENCOUNTER 2016-10-05 13:02 | Inpatient (IN) | payer OTHER ==
[2016-10-05] MEDS ORDERED: ACETAMINOPHEN 325 MG TABLET (FP) PO PRN (15:01)
[2016-10-05] MEDS ORDERED: guaiFENesin/D-METHORPHAN HB 10 ML UNIT-DOSE CUPS PO PRN (15:01)
[2016-10-05] MEDS ORDERED: MAGNESIUM HYDROX 2400MG/30ML ORAL SUSPENSION 30 ML CUP PO PRN (15:01)
[2016-10-05] MEDS ORDERED: MAGNESIUM CITRATE 300 ML BOTTLE PO PRN (15:01)
[2016-10-05] MEDS ORDERED: MAG HYDROX/AL HYDROX/SIMETH 30 ML UNIT-DOSE CUP PO PRN (15:01)
[2016-10-05] MEDS ORDERED: LOPERAMIDE HCL 2 MG CAPSULE PO PRN (15:01)
[2016-10-05] MEDS ORDERED: P-EPHED 60MG/TRIPROLIDI 2.5MG TABLET PO PRN (15:01)
[2016-10-05] MEDS ORDERED: MENTHOL/PHENOL 1 EACH UD MM PRN (15:01)
--- NOTE | 2016-10-05 15:11 | HP ---
[facility] Rehab Assess/Revision - Admission History Admitted to Rehab from: [facility] Date of Admission to Rehab: 10/05/16 - Vital signs Vital Signs: Vital Signs Temperature 98.7 F 10/05/16 15:07 Pulse Rate 77 10/05/16 15:07 Respiratory Rate 20 10/05/16 15:07 Blood Pressure 120/60 10/05/16 15:07 O2 Sat by Pulse Oximetry (%) - Findings Detox History & Physical reviewed: Yes Concur with findings: Yes
[2016-10-05] MEDS ORDERED: NICOTINE POLACRILEX 2 MG GUM BUC PRN (15:12)
[2016-10-05] MEDS ORDERED: INSULIN DETEMIR 100 UNITS/ML MDV SQ ONE (17:35)
[2016-10-05] MEDS: IBUPROFEN 400 MG TABLET (FP) PO PRN (20:00)
[2016-10-05] MEDS: THIAMINE HCL 100 MG TABLET (FP) PO SCH (21:35)
[2016-10-05] MEDS: RAMIPRIL 5 MG CAPSULE (FP) PO SCH (21:35)
[2016-10-05] MEDS: diphenhydrAMINE HCL 50 MG CAPSULE PO PRN (21:36)
[2016-10-06] MEDS ORDERED: metFORMIN HCL 500 MG TABLET (FP) PO SCH ×2 (07:00)
[2016-10-06] MEDS: sitaGLIPtin PHOSPHATE 25 MG TABLET (FP) PO SCH ×2 (07:02→11:59)
[2016-10-06] MEDS: INSULIN SLIDING SCALE (NOVOLOG) 1 VIAL SQ SCH ×2 (07:02→16:55)
[2016-10-06] MEDS: INSULIN DETEMIR 100 UNITS/ML MDV SQ SCH ×2 (07:03→16:55)
[2016-10-06] MEDS: RAMIPRIL 5 MG CAPSULE (FP) PO SCH ×2 (10:09→21:08)
[2016-10-06] MEDS: amLODIPine BESYLATE 10 MG TABLET (FP) PO SCH (10:09)
[2016-10-06] MEDS: PRENATAL VITAMINS W/ FOLIC ACID TABLET (FP) PO SCH (10:09)
[2016-10-06 11:54] LABS: CALCIUM 9.2 mg/dL (8.5-10.1); CREATININE 1.3 mg/dL (0.7-1.3)
[2016-10-06] MEDS: THIAMINE HCL 100 MG TABLET (FP) PO SCH (21:08)
[2016-10-06] MEDS: diphenhydrAMINE HCL 50 MG CAPSULE PO PRN (21:08)
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
[2016-10-07] MEDS ORDERED: amLODIPine BESYLATE 10 MG TABLET (FP) PO ONE (07:18)
[2016-10-07] MEDS: sitaGLIPtin PHOSPHATE 25 MG TABLET (FP) PO SCH (07:23)
[2016-10-07] MEDS: INSULIN SLIDING SCALE (NOVOLOG) 1 VIAL SQ SCH ×2 (07:25→17:04)
[2016-10-07] MEDS: INSULIN DETEMIR 100 UNITS/ML MDV SQ SCH ×2 (08:30→17:04)
[2016-10-07] MEDS: NICOTINE 21 MG/24 HOURS TOPICAL PATCH TD SCH (10:15)
[2016-10-07] MEDS: PRENATAL VITAMINS W/ FOLIC ACID TABLET (FP) PO SCH (10:15)
[2016-10-07] MEDS: RAMIPRIL 5 MG CAPSULE (FP) PO SCH ×2 (10:32→22:10)
[2016-10-07] MEDS ORDERED: CYCLOBENZAPRINE HCL 10 MG TABLET (FP) PO PRN (13:31)
[2016-10-07] MEDS ORDERED: CYCLOBENZAPRINE HCL 10 MG TABLET (FP) PO ONE (13:31)
[2016-10-07] MEDS ORDERED: INSULIN (NOVOLOG) ASPART 100 UNITS/ML 10ML VIAL ONE (17:02)
[2016-10-07] MEDS: THIAMINE HCL 100 MG TABLET (FP) PO SCH (22:10)
[2016-10-07] MEDS: IBUPROFEN 400 MG TABLET (FP) PO PRN (22:13)
[2016-10-08] MEDS: sitaGLIPtin PHOSPHATE 25 MG TABLET (FP) PO SCH (07:10)
[2016-10-08] MEDS: INSULIN SLIDING SCALE (NOVOLOG) 1 VIAL SQ SCH ×2 (07:13→16:50)
[2016-10-08] MEDS: INSULIN DETEMIR 100 UNITS/ML MDV SQ SCH ×2 (07:58→16:50)
[2016-10-08] MEDS: NICOTINE 21 MG/24 HOURS TOPICAL PATCH TD SCH (10:11)
[2016-10-08] MEDS: RAMIPRIL 5 MG CAPSULE (FP) PO SCH ×2 (10:11→21:20)
[2016-10-08] MEDS: PRENATAL VITAMINS W/ FOLIC ACID TABLET (FP) PO SCH (10:11)
[2016-10-08] MEDS: amLODIPine BESYLATE 10 MG TABLET (FP) PO SCH (10:12)
[2016-10-08] MEDS ORDERED: INSULIN (NOVOLOG) ASPART 100 UNITS/ML 10ML VIAL ONE (16:48)
[2016-10-08] MEDS ORDERED: INSULIN DETEMIR 100 UNITS/ML MDV SQ ONE (16:49)
[2016-10-08] MEDS: IBUPROFEN 400 MG TABLET (FP) PO PRN (18:10)
[2016-10-08] MEDS: THIAMINE HCL 100 MG TABLET (FP) PO SCH (21:20)
[2016-10-08] MEDS: diphenhydrAMINE HCL 50 MG CAPSULE PO PRN (23:23)
[2016-10-09] MEDS: sitaGLIPtin PHOSPHATE 25 MG TABLET (FP) PO SCH (07:00)
[2016-10-09] MEDS: INSULIN DETEMIR 100 UNITS/ML MDV SQ SCH ×2 (07:30→16:57)
[2016-10-09] MEDS: INSULIN SLIDING SCALE (NOVOLOG) 1 VIAL SQ SCH ×2 (07:30→16:57)
[2016-10-09] MEDS: amLODIPine BESYLATE 10 MG TABLET (FP) PO SCH (09:37)
[2016-10-09] MEDS: RAMIPRIL 5 MG CAPSULE (FP) PO SCH ×2 (09:37→21:48)
[2016-10-09] MEDS: PRENATAL VITAMINS W/ FOLIC ACID TABLET (FP) PO SCH (09:37)
[2016-10-09] MEDS: NICOTINE 21 MG/24 HOURS TOPICAL PATCH TD SCH (09:37)
[2016-10-09] MEDS: IBUPROFEN 400 MG TABLET (FP) PO PRN (15:56)
[2016-10-09] MEDS ORDERED: INSULIN (NOVOLOG) ASPART 100 UNITS/ML 10ML VIAL ONE (16:56)
[2016-10-09] MEDS: diphenhydrAMINE HCL 50 MG CAPSULE PO PRN (21:47)
[2016-10-09] MEDS: THIAMINE HCL 100 MG TABLET (FP) PO SCH (21:47)
[2016-10-10] MEDS: sitaGLIPtin PHOSPHATE 25 MG TABLET (FP) PO SCH (06:54)
[2016-10-10] MEDS: INSULIN SLIDING SCALE (NOVOLOG) 1 VIAL SQ SCH ×2 (06:54→16:44)
[2016-10-10] MEDS: INSULIN DETEMIR 100 UNITS/ML MDV SQ SCH ×2 (08:30→16:45)
[2016-10-10] MEDS: NICOTINE 21 MG/24 HOURS TOPICAL PATCH TD SCH (10:32)
[2016-10-10] MEDS: amLODIPine BESYLATE 10 MG TABLET (FP) PO SCH (10:32)
[2016-10-10] MEDS: PRENATAL VITAMINS W/ FOLIC ACID TABLET (FP) PO SCH (10:32)
[2016-10-10] MEDS: RAMIPRIL 5 MG CAPSULE (FP) PO SCH ×2 (10:32→21:11)
[2016-10-10] MEDS ORDERED: INSULIN DETEMIR 100 UNITS/ML MDV SQ ONE (10:34)
[2016-10-10] MEDS ORDERED: INSULIN (NOVOLOG) ASPART 100 UNITS/ML 10ML VIAL ONE (16:45)
[2016-10-10] MEDS: diphenhydrAMINE HCL 50 MG CAPSULE PO PRN (21:11)
[2016-10-10] MEDS: THIAMINE HCL 100 MG TABLET (FP) PO SCH (21:11)
[2016-10-11] MEDS: INSULIN SLIDING SCALE (NOVOLOG) 1 VIAL SQ SCH ×2 (07:25→16:54)
[2016-10-11] MEDS: INSULIN DETEMIR 100 UNITS/ML MDV SQ SCH ×2 (07:27→16:53)
[2016-10-11] MEDS: sitaGLIPtin PHOSPHATE 25 MG TABLET (FP) PO SCH (07:27)
[2016-10-11] MEDS: RAMIPRIL 5 MG CAPSULE (FP) PO SCH ×2 (10:38→21:18)
[2016-10-11] MEDS: NICOTINE 21 MG/24 HOURS TOPICAL PATCH TD SCH (10:38)
[2016-10-11] MEDS: amLODIPine BESYLATE 10 MG TABLET (FP) PO SCH (11:49)
[2016-10-11] MEDS: PRENATAL VITAMINS W/ FOLIC ACID TABLET (FP) PO SCH (11:49)
[2016-10-11] MEDS: IBUPROFEN 400 MG TABLET (FP) PO PRN (21:18)
[2016-10-11] MEDS: THIAMINE HCL 100 MG TABLET (FP) PO SCH (21:18)
[2016-10-12] MEDS: sitaGLIPtin PHOSPHATE 25 MG TABLET (FP) PO SCH (07:07)
[2016-10-12] MEDS: INSULIN SLIDING SCALE (NOVOLOG) 1 VIAL SQ SCH ×2 (07:08→16:55)
[2016-10-12] MEDS: INSULIN DETEMIR 100 UNITS/ML MDV SQ SCH ×2 (07:37→16:55)
[2016-10-12] MEDS: PRENATAL VITAMINS W/ FOLIC ACID TABLET (FP) PO SCH (10:36)
[2016-10-12] MEDS: RAMIPRIL 5 MG CAPSULE (FP) PO SCH ×2 (10:36→21:38)
[2016-10-12] MEDS: NICOTINE 21 MG/24 HOURS TOPICAL PATCH TD SCH (10:36)
[2016-10-12] MEDS: amLODIPine BESYLATE 10 MG TABLET (FP) PO SCH (10:36)
[2016-10-12] MEDS ORDERED: INSULIN (NOVOLOG) ASPART 100 UNITS/ML 10ML VIAL ONE (17:01)
[2016-10-12] MEDS: THIAMINE HCL 100 MG TABLET (FP) PO SCH (21:38)
[2016-10-12] MEDS: diphenhydrAMINE HCL 50 MG CAPSULE PO PRN (21:38)
[2016-10-13] MEDS: sitaGLIPtin PHOSPHATE 25 MG TABLET (FP) PO SCH (07:18)
[2016-10-13] MEDS: INSULIN SLIDING SCALE (NOVOLOG) 1 VIAL SQ SCH ×2 (07:19→16:57)
[2016-10-13] MEDS: INSULIN DETEMIR 100 UNITS/ML MDV SQ SCH ×2 (07:34→16:57)
[2016-10-13] MEDS: PRENATAL VITAMINS W/ FOLIC ACID TABLET (FP) PO SCH (10:36)
[2016-10-13] MEDS: RAMIPRIL 5 MG CAPSULE (FP) PO SCH ×2 (10:36→21:31)
[2016-10-13] MEDS: NICOTINE 21 MG/24 HOURS TOPICAL PATCH TD SCH (10:36)
[2016-10-13] MEDS: amLODIPine BESYLATE 10 MG TABLET (FP) PO SCH (10:36)
[2016-10-13] MEDS: THIAMINE HCL 100 MG TABLET (FP) PO SCH (21:31)
[2016-10-13] MEDS: diphenhydrAMINE HCL 50 MG CAPSULE PO PRN (21:31)
[2016-10-14] MEDS: INSULIN SLIDING SCALE (NOVOLOG) 1 VIAL SQ SCH ×2 (06:30→17:06)
[2016-10-14] MEDS: sitaGLIPtin PHOSPHATE 25 MG TABLET (FP) PO SCH (06:30)
[2016-10-14] MEDS ORDERED: INSULIN DETEMIR 100 UNITS/ML MDV SQ ONE ×2 (07:11→17:04)
[2016-10-14] MEDS: INSULIN DETEMIR 100 UNITS/ML MDV SQ SCH ×2 (07:58→17:05)
[2016-10-14] MEDS: PRENATAL VITAMINS W/ FOLIC ACID TABLET (FP) PO SCH (10:22)
[2016-10-14] MEDS: RAMIPRIL 5 MG CAPSULE (FP) PO SCH ×2 (10:22→21:40)
[2016-10-14] MEDS: NICOTINE 21 MG/24 HOURS TOPICAL PATCH TD SCH (10:22)
[2016-10-14] MEDS: amLODIPine BESYLATE 10 MG TABLET (FP) PO SCH (10:22)
[2016-10-14] MEDS: diphenhydrAMINE HCL 50 MG CAPSULE PO PRN (21:40)
[2016-10-14] MEDS: THIAMINE HCL 100 MG TABLET (FP) PO SCH (21:40)
[2016-10-15] MEDS: INSULIN SLIDING SCALE (NOVOLOG) 1 VIAL SQ SCH ×2 (06:58→16:51)
[2016-10-15] MEDS: sitaGLIPtin PHOSPHATE 25 MG TABLET (FP) PO SCH (06:58)
[2016-10-15] MEDS: INSULIN DETEMIR 100 UNITS/ML MDV SQ SCH ×2 (08:11→16:51)
[2016-10-15] MEDS: amLODIPine BESYLATE 10 MG TABLET (FP) PO SCH (10:05)
[2016-10-15] MEDS: NICOTINE 21 MG/24 HOURS TOPICAL PATCH TD SCH (10:05)
[2016-10-15] MEDS: RAMIPRIL 5 MG CAPSULE (FP) PO SCH ×2 (10:05→21:19)
[2016-10-15] MEDS: PRENATAL VITAMINS W/ FOLIC ACID TABLET (FP) PO SCH (10:05)
[2016-10-15] MEDS ORDERED: INSULIN (NOVOLOG) ASPART 100 UNITS/ML 10ML VIAL ONE (16:49)
[2016-10-15] MEDS: THIAMINE HCL 100 MG TABLET (FP) PO SCH (21:19)
[2016-10-15] MEDS: IBUPROFEN 400 MG TABLET (FP) PO PRN (21:19)
[2016-10-15] MEDS: diphenhydrAMINE HCL 50 MG CAPSULE PO PRN (21:19)
[2016-10-16] MEDS: INSULIN DETEMIR 100 UNITS/ML MDV SQ SCH ×2 (06:53→16:53)
[2016-10-16] MEDS: sitaGLIPtin PHOSPHATE 25 MG TABLET (FP) PO SCH (06:55)
[2016-10-16] MEDS: INSULIN SLIDING SCALE (NOVOLOG) 1 VIAL SQ SCH ×2 (07:34→16:54)
[2016-10-16] MEDS: PRENATAL VITAMINS W/ FOLIC ACID TABLET (FP) PO SCH (10:26)
[2016-10-16] MEDS: RAMIPRIL 5 MG CAPSULE (FP) PO SCH ×2 (10:26→21:30)
[2016-10-16] MEDS: NICOTINE 21 MG/24 HOURS TOPICAL PATCH TD SCH (10:26)
[2016-10-16] MEDS: amLODIPine BESYLATE 10 MG TABLET (FP) PO SCH (10:26)
[2016-10-16] MEDS ORDERED: INSULIN DETEMIR 100 UNITS/ML MDV SQ ONE (16:52)
[2016-10-16] MEDS: THIAMINE HCL 100 MG TABLET (FP) PO SCH (21:30)
[2016-10-16] MEDS: diphenhydrAMINE HCL 50 MG CAPSULE PO PRN (21:30)
[2016-10-16] MEDS: IBUPROFEN 400 MG TABLET (FP) PO PRN (21:30)
[2016-10-17] MEDS: sitaGLIPtin PHOSPHATE 25 MG TABLET (FP) PO SCH (07:21)
[2016-10-17] MEDS ORDERED: INSULIN (NOVOLOG) ASPART 100 UNITS/ML 10ML VIAL ONE (07:22)
[2016-10-17] MEDS: INSULIN DETEMIR 100 UNITS/ML MDV SQ SCH ×2 (07:24→16:50)
[2016-10-17] MEDS: INSULIN SLIDING SCALE (NOVOLOG) 1 VIAL SQ SCH ×2 (07:24→16:51)
[2016-10-17] MEDS: amLODIPine BESYLATE 10 MG TABLET (FP) PO SCH (10:08)
[2016-10-17] MEDS: RAMIPRIL 5 MG CAPSULE (FP) PO SCH ×2 (10:08→21:09)
[2016-10-17] MEDS: PRENATAL VITAMINS W/ FOLIC ACID TABLET (FP) PO SCH (10:08)
[2016-10-17] MEDS: NICOTINE 21 MG/24 HOURS TOPICAL PATCH TD SCH (10:08)
[2016-10-17] MEDS: THIAMINE HCL 100 MG TABLET (FP) PO SCH (21:09)
[2016-10-17] MEDS: diphenhydrAMINE HCL 50 MG CAPSULE PO PRN (21:09)
[2016-10-17] MEDS: IBUPROFEN 400 MG TABLET (FP) PO PRN (21:10)
[2016-10-18] MEDS: sitaGLIPtin PHOSPHATE 25 MG TABLET (FP) PO SCH (06:32)
[2016-10-18] MEDS: INSULIN SLIDING SCALE (NOVOLOG) 1 VIAL SQ SCH ×2 (06:33→16:54)
[2016-10-18] MEDS: INSULIN DETEMIR 100 UNITS/ML MDV SQ SCH ×2 (07:36→16:54)
[2016-10-18] MEDS: PRENATAL VITAMINS W/ FOLIC ACID TABLET (FP) PO SCH (10:30)
[2016-10-18] MEDS: RAMIPRIL 5 MG CAPSULE (FP) PO SCH ×2 (10:30→21:24)
[2016-10-18] MEDS: amLODIPine BESYLATE 10 MG TABLET (FP) PO SCH (10:30)
[2016-10-18] MEDS: IBUPROFEN 400 MG TABLET (FP) PO PRN ×2 (10:32→21:24)
[2016-10-18] MEDS: NICOTINE 21 MG/24 HOURS TOPICAL PATCH TD SCH (10:33)
[2016-10-18] MEDS: diphenhydrAMINE HCL 50 MG CAPSULE PO PRN (21:24)
[2016-10-18] MEDS: THIAMINE HCL 100 MG TABLET (FP) PO SCH (21:24)
[2016-10-19] MEDS: sitaGLIPtin PHOSPHATE 25 MG TABLET (FP) PO SCH (06:54)
[2016-10-19] MEDS: INSULIN SLIDING SCALE (NOVOLOG) 1 VIAL SQ SCH ×2 (06:54→16:37)
[2016-10-19] MEDS: INSULIN DETEMIR 100 UNITS/ML MDV SQ SCH ×2 (08:07→16:37)
[2016-10-19] MEDS: RAMIPRIL 5 MG CAPSULE (FP) PO SCH ×2 (10:06→21:55)
[2016-10-19] MEDS: PRENATAL VITAMINS W/ FOLIC ACID TABLET (FP) PO SCH (10:06)
[2016-10-19] MEDS: amLODIPine BESYLATE 10 MG TABLET (FP) PO SCH (10:06)
[2016-10-19] MEDS: NICOTINE 21 MG/24 HOURS TOPICAL PATCH TD SCH (10:06)
[2016-10-19] MEDS: THIAMINE HCL 100 MG TABLET (FP) PO SCH (21:55)
[2016-10-19] MEDS: diphenhydrAMINE HCL 50 MG CAPSULE PO PRN (21:56)
[2016-10-19] MEDS: IBUPROFEN 400 MG TABLET (FP) PO PRN (21:56)
[2016-10-20] MEDS: sitaGLIPtin PHOSPHATE 25 MG TABLET (FP) PO SCH (06:43)
[2016-10-20] MEDS: INSULIN SLIDING SCALE (NOVOLOG) 1 VIAL SQ SCH ×2 (06:44→16:55)
[2016-10-20] MEDS: INSULIN DETEMIR 100 UNITS/ML MDV SQ SCH ×2 (08:03→16:55)
[2016-10-20] MEDS: amLODIPine BESYLATE 10 MG TABLET (FP) PO SCH (10:10)
[2016-10-20] MEDS: NICOTINE 21 MG/24 HOURS TOPICAL PATCH TD SCH (10:10)
[2016-10-20] MEDS: RAMIPRIL 5 MG CAPSULE (FP) PO SCH ×2 (10:10→21:51)
[2016-10-20] MEDS: PRENATAL VITAMINS W/ FOLIC ACID TABLET (FP) PO SCH (10:10)
[2016-10-20] MEDS ORDERED: INSULIN (NOVOLOG) ASPART 100 UNITS/ML 10ML VIAL ONE (16:54)
[2016-10-20] MEDS: IBUPROFEN 400 MG TABLET (FP) PO PRN (21:50)
[2016-10-20] MEDS: THIAMINE HCL 100 MG TABLET (FP) PO SCH (21:51)
[2016-10-20] MEDS: diphenhydrAMINE HCL 50 MG CAPSULE PO PRN (21:51)
[2016-10-21] MEDS: sitaGLIPtin PHOSPHATE 25 MG TABLET (FP) PO SCH (06:26)
[2016-10-21] MEDS: INSULIN SLIDING SCALE (NOVOLOG) 1 VIAL SQ SCH ×2 (06:26→16:56)
[2016-10-21] MEDS: INSULIN DETEMIR 100 UNITS/ML MDV SQ SCH ×2 (07:32→16:55)
[2016-10-21] MEDS: RAMIPRIL 5 MG CAPSULE (FP) PO SCH ×2 (10:42→21:58)
[2016-10-21] MEDS: amLODIPine BESYLATE 10 MG TABLET (FP) PO SCH (10:42)
[2016-10-21] MEDS: NICOTINE 21 MG/24 HOURS TOPICAL PATCH TD SCH (10:42)
[2016-10-21] MEDS: PRENATAL VITAMINS W/ FOLIC ACID TABLET (FP) PO SCH (10:42)
[2016-10-21] MEDS: diphenhydrAMINE HCL 50 MG CAPSULE PO PRN (21:58)
[2016-10-21] MEDS: IBUPROFEN 400 MG TABLET (FP) PO PRN (21:58)
[2016-10-21] MEDS: THIAMINE HCL 100 MG TABLET (FP) PO SCH (21:58)
[2016-10-22] MEDS: INSULIN SLIDING SCALE (NOVOLOG) 1 VIAL SQ SCH ×2 (07:20→16:49)
[2016-10-22] MEDS: INSULIN DETEMIR 100 UNITS/ML MDV SQ SCH ×2 (07:21→16:49)
[2016-10-22] MEDS: sitaGLIPtin PHOSPHATE 25 MG TABLET (FP) PO SCH (07:21)
[2016-10-22] MEDS: RAMIPRIL 5 MG CAPSULE (FP) PO SCH ×2 (10:34→21:31)
[2016-10-22] MEDS: PRENATAL VITAMINS W/ FOLIC ACID TABLET (FP) PO SCH (10:34)
[2016-10-22] MEDS: amLODIPine BESYLATE 10 MG TABLET (FP) PO SCH (10:34)
[2016-10-22] MEDS: NICOTINE 21 MG/24 HOURS TOPICAL PATCH TD SCH (10:35)
[2016-10-22] MEDS: IBUPROFEN 400 MG TABLET (FP) PO PRN (21:31)
[2016-10-22] MEDS: diphenhydrAMINE HCL 50 MG CAPSULE PO PRN (21:31)
[2016-10-22] MEDS: THIAMINE HCL 100 MG TABLET (FP) PO SCH (21:31)
[2016-10-23] MEDS: sitaGLIPtin PHOSPHATE 25 MG TABLET (FP) PO SCH (07:24)
[2016-10-23] MEDS: INSULIN SLIDING SCALE (NOVOLOG) 1 VIAL SQ SCH ×2 (07:25→16:46)
[2016-10-23] MEDS: INSULIN DETEMIR 100 UNITS/ML MDV SQ SCH ×2 (07:27→16:45)
[2016-10-23] MEDS: amLODIPine BESYLATE 10 MG TABLET (FP) PO SCH (10:41)
[2016-10-23] MEDS: PRENATAL VITAMINS W/ FOLIC ACID TABLET (FP) PO SCH (10:41)
[2016-10-23] MEDS: NICOTINE 21 MG/24 HOURS TOPICAL PATCH TD SCH (10:41)
[2016-10-23] MEDS: RAMIPRIL 5 MG CAPSULE (FP) PO SCH ×2 (10:41→21:42)
[2016-10-23] MEDS: THIAMINE HCL 100 MG TABLET (FP) PO SCH (21:42)
[2016-10-23] MEDS: IBUPROFEN 400 MG TABLET (FP) PO PRN (21:42)
[2016-10-23] MEDS: diphenhydrAMINE HCL 50 MG CAPSULE PO PRN (21:42)
[2016-10-24] MEDS: INSULIN SLIDING SCALE (NOVOLOG) 1 VIAL SQ SCH ×2 (06:49→16:36)
[2016-10-24] MEDS: sitaGLIPtin PHOSPHATE 25 MG TABLET (FP) PO SCH (06:49)
[2016-10-24] MEDS ORDERED: INSULIN (NOVOLOG) ASPART 100 UNITS/ML 10ML VIAL ONE ×2 (07:15→16:35)
[2016-10-24] MEDS: INSULIN DETEMIR 100 UNITS/ML MDV SQ SCH ×2 (08:07→16:36)
[2016-10-24] MEDS: amLODIPine BESYLATE 10 MG TABLET (FP) PO SCH (10:23)
[2016-10-24] MEDS: PRENATAL VITAMINS W/ FOLIC ACID TABLET (FP) PO SCH (10:23)
[2016-10-24] MEDS: RAMIPRIL 5 MG CAPSULE (FP) PO SCH ×2 (10:23→21:28)
[2016-10-24] MEDS: NICOTINE 21 MG/24 HOURS TOPICAL PATCH TD SCH (10:24)
[2016-10-24] MEDS ORDERED: INSULIN DETEMIR 100 UNITS/ML MDV SQ ONE (16:35)
[2016-10-24] MEDS: THIAMINE HCL 100 MG TABLET (FP) PO SCH (21:28)
[2016-10-24] MEDS: IBUPROFEN 400 MG TABLET (FP) PO PRN (21:28)
[2016-10-24] MEDS: diphenhydrAMINE HCL 50 MG CAPSULE PO PRN (21:28)
[2016-10-25] MEDS: INSULIN DETEMIR 100 UNITS/ML MDV SQ SCH ×2 (07:20→16:35)
[2016-10-25] MEDS: INSULIN SLIDING SCALE (NOVOLOG) 1 VIAL SQ SCH ×2 (07:20→16:35)
[2016-10-25] MEDS: sitaGLIPtin PHOSPHATE 25 MG TABLET (FP) PO SCH (07:20)
[2016-10-25] MEDS ORDERED: INSULIN (NOVOLOG) ASPART 100 UNITS/ML 10ML VIAL ONE ×2 (07:27→16:32)
[2016-10-25] MEDS: amLODIPine BESYLATE 10 MG TABLET (FP) PO SCH (10:45)
[2016-10-25] MEDS: PRENATAL VITAMINS W/ FOLIC ACID TABLET (FP) PO SCH (10:45)
[2016-10-25] MEDS: NICOTINE 21 MG/24 HOURS TOPICAL PATCH TD SCH (10:45)
[2016-10-25] MEDS: RAMIPRIL 5 MG CAPSULE (FP) PO SCH ×2 (10:45→21:13)
[2016-10-25] MEDS: IBUPROFEN 400 MG TABLET (FP) PO PRN (21:12)
[2016-10-25] MEDS: diphenhydrAMINE HCL 50 MG CAPSULE PO PRN (21:13)
[2016-10-25] MEDS: THIAMINE HCL 100 MG TABLET (FP) PO SCH (21:13)
[2016-10-26] MEDS: sitaGLIPtin PHOSPHATE 25 MG TABLET (FP) PO SCH (07:10)
[2016-10-26] MEDS: INSULIN SLIDING SCALE (NOVOLOG) 1 VIAL SQ SCH ×2 (07:10→17:04)
[2016-10-26] MEDS: INSULIN DETEMIR 100 UNITS/ML MDV SQ SCH ×2 (07:50→17:04)
[2016-10-26] MEDS: RAMIPRIL 5 MG CAPSULE (FP) PO SCH ×2 (10:24→21:42)
[2016-10-26] MEDS: PRENATAL VITAMINS W/ FOLIC ACID TABLET (FP) PO SCH (10:24)
[2016-10-26] MEDS: NICOTINE 21 MG/24 HOURS TOPICAL PATCH TD SCH (10:25)
[2016-10-26] MEDS: amLODIPine BESYLATE 10 MG TABLET (FP) PO SCH (10:25)
[2016-10-26] MEDS: THIAMINE HCL 100 MG TABLET (FP) PO SCH (21:41)
[2016-10-26] MEDS: diphenhydrAMINE HCL 50 MG CAPSULE PO PRN (21:42)
[2016-10-26] MEDS: IBUPROFEN 400 MG TABLET (FP) PO PRN (21:43)
[2016-10-27] MEDS: INSULIN SLIDING SCALE (NOVOLOG) 1 VIAL SQ SCH ×2 (07:27→16:54)
[2016-10-27] MEDS: sitaGLIPtin PHOSPHATE 25 MG TABLET (FP) PO SCH (07:27)
[2016-10-27] MEDS: INSULIN DETEMIR 100 UNITS/ML MDV SQ SCH ×2 (07:32→16:53)
[2016-10-27] MEDS: RAMIPRIL 5 MG CAPSULE (FP) PO SCH ×2 (10:28→21:27)
[2016-10-27] MEDS: PRENATAL VITAMINS W/ FOLIC ACID TABLET (FP) PO SCH (10:28)
[2016-10-27] MEDS: amLODIPine BESYLATE 10 MG TABLET (FP) PO SCH (10:28)
[2016-10-27] MEDS: NICOTINE 21 MG/24 HOURS TOPICAL PATCH TD SCH (10:29)
[2016-10-27] MEDS: THIAMINE HCL 100 MG TABLET (FP) PO SCH (21:27)
[2016-10-27] MEDS: diphenhydrAMINE HCL 50 MG CAPSULE PO PRN (21:27)
[2016-10-27] MEDS: IBUPROFEN 400 MG TABLET (FP) PO PRN (21:28)
[2016-10-28] MEDS: INSULIN SLIDING SCALE (NOVOLOG) 1 VIAL SQ SCH ×2 (06:33→16:42)
[2016-10-28] MEDS: sitaGLIPtin PHOSPHATE 25 MG TABLET (FP) PO SCH (06:33)
[2016-10-28] MEDS: INSULIN DETEMIR 100 UNITS/ML MDV SQ SCH ×2 (07:37→16:42)
[2016-10-28] MEDS: RAMIPRIL 5 MG CAPSULE (FP) PO SCH ×2 (10:33→21:08)
[2016-10-28] MEDS: PRENATAL VITAMINS W/ FOLIC ACID TABLET (FP) PO SCH (10:33)
[2016-10-28] MEDS: NICOTINE 21 MG/24 HOURS TOPICAL PATCH TD SCH (10:33)
[2016-10-28] MEDS: amLODIPine BESYLATE 10 MG TABLET (FP) PO SCH (10:33)
[2016-10-28] MEDS ORDERED: INSULIN DETEMIR 100 UNITS/ML MDV SQ ONE (16:42)
[2016-10-28] MEDS: diphenhydrAMINE HCL 50 MG CAPSULE PO PRN (21:08)
[2016-10-28] MEDS: IBUPROFEN 400 MG TABLET (FP) PO PRN (21:08)
[2016-10-28] MEDS: THIAMINE HCL 100 MG TABLET (FP) PO SCH (21:08)
[2016-10-29] MEDS: sitaGLIPtin PHOSPHATE 25 MG TABLET (FP) PO SCH (06:33)
[2016-10-29] MEDS: INSULIN SLIDING SCALE (NOVOLOG) 1 VIAL SQ SCH (06:34)
--- NOTE | 2016-10-29 06:59 | PN ---
Psychiatric Progress Note Vital Signs: Vital Signs Period Temp Pulse Resp BP Sys/Temple Pulse Ox Last 24 Hr 82-87 16-20 134-148/79-82 Date of Session: 10/29/16 Chief Complaint:: Psychiatrist Discharge Note HPI: Patient addressing Opoid, Cocaine Dependence comorbid with Nicotine Dependence and Substance-Induced Mood Disorder ROS: DM, GERD, HTN Current Medications: Active Medications Generic Name Dose Route Start Last Admin Trade Name Freq PRN Reason Stop Dose Admin Acetaminophen 650 mg 10/05/16 15:01 Tylenol - PO Q4H PRN FEVER OR PAIN Al Hydroxide/Mg Hydroxide 30 ml 10/05/16 15:01 Mylanta Oral Suspension - PO Q6H PRN DYSPEPSIA Amlodipine Besylate 10 mg 10/06/16 10:00 10/28/16 10:33 Norvasc - PO 10 mg DAILY LUCIO Administration Cyclobenzaprine HCl 10 mg 10/07/16 13:31 Flexeril - PO TID PRN MUSCLE SPASMS Diphenhydramine HCl 50 mg 10/05/16 15:01 10/28/16 21:08 Benadryl - PO 50 mg HSMR1 PRN Administration FOR ITCHING Eucalyptus/Menthol/Phenol/Sorbitol 1 each 10/05/16 15:01 Cepastat Lozenge - MM Q4H PRN SORE THROAT Guaifenesin 10 ml 10/05/16 15:01 Robitussin Dm - PO Q6H PRN COUGH Ibuprofen 400 mg 10/05/16 15:01 10/28/16 21:08 Motrin - PO 400 mg Q6H PRN Administration PAIN Insulin Aspart 1 vial 10/06/16 07:00 10/29/16 06:34 Novolog Vial Sliding Scale - SQ Not Given BIDAC [facility] Protocol Insulin Detemir 10 units 10/06/16 07:30 10/28/16 16:42 Levemir Vial SQ 10 units BID@0730,1630 [facility] Administration Loperamide HCl 4 mg 10/05/16 15:01 Imodium - PO Q6H PRN DIARRHEA Magnesium Hydroxide 30 ml 10/05/16 15:01 Milk Of Magnesia - PO DAILY PRN CONSTIPATION Nicotine 21 mg 10/07/16 10:00 10/28/16 10:33 Nicoderm Patch - TD Not Given DAILY [facility] Nicotine Polacrilex 2 mg 10/05/16 15:12 Nicorette Gum - BUC Q2H PRN NICOTINE REPLACEMENT RX Multivit/Folic Acid/Iron 1 tab 10/06/16 10:00 10/28/16 10:33 Vitamins (Sjr) - PO 1 tab DAILY LUCIO Administration Pseudoephedrine/Triprolidine 1 combo 10/05/16 15:01 Actifed - PO TID PRN NASAL CONGESTION Ramipril 5 mg 10/05/16 22:00 10/28/16 21:08 Altace - PO 5 mg BID LUCIO Administration Sitagliptin Phosphate 25 mg 10/06/16 07:00 10/29/16 06:33 Januvia - PO 25 mg ACBK LUCIO Administration Thiamine HCl 100 mg 10/05/16 22:00 10/28/16 21:08 Vitamin B1 - PO 100 mg HS LUCIO Administration Current Side Effect: No Lab tests ordered: Yes Lab tests reviewed: Yes Provider note:: Patient has completed this program today. He has met his treatment goals and will continue to address his issues in outpatient program at [facility]. He verbalized understanding of the negative consequences of his addiction and recognizes the importance of establishing a sober network in order to maintain sobriety. He is stable for discharge today Total face to face time:: 35 Mental Status Exam - Mental Status Exam Alert and Oriented to: Time, Place, Person Cognitive Function: Fair Patient Appearance: Well Groomed Mood: Hopeful, Euthymic Affect: Appropriate Patient Behavior: Cooperative Speech Pattern: Clear Voice Loudness: Normal Thought Process: Intact Thought Disorder: Not Present Hallucinations: Denies Suicidal Ideation: Denies Homicidal Ideation: Denies Insight/Judgement: Fair Sleep: Fair Appetite: Good Muscle strength/Tone: Normal Gait/Station: Normal Psychiatric Treatment Plan - Problem List (1) Opioid dependence with withdrawal Current Visit: No (2) Cocaine dependence Current Visit: No (3) Nicotine dependence Current Visit: No Qualifiers: Nicotine product type: cigarettes Substance use status: uncomplicated Qualified Code(s): F17.210 - Nicotine dependence, cigarettes, uncomplicated (4) Diabetes mellitus type II, controlled Current Visit: No Qualifiers: Diabetes mellitus complication status: with neurologic complications Diabetes mellitus complication detail: with polyneuropathy Diabetes mellitus longterm insulin use: with terminologist use Qualified Code(s): E11.42 - Type 2 diabetes mellitus with diabetic polyneuropathy; Z79.4 - detention (current) use of insulin (5) GERD (gastroesophageal reflux disease) Current Visit: No Qualifiers: Esophagitis presence: without esophagitis Qualified Code(s): K21.9 - Gastro-esophageal reflux disease without esophagitis (6) Hypertension Current Visit: No Qualifiers: Hypertension type: essential hypertension Qualified Code(s): I10 - Essential (primary) hypertension (7) Substance induced mood disorder Current Visit: Yes Initial treatment plan: Patient will be discharged today and referred to [facility] for outpatient treatment
[2016-10-29 07:04] VITALS: BP 151/93; PULSE 77; TEMP 98.1
[2016-10-29] MEDS: INSULIN DETEMIR 100 UNITS/ML MDV SQ SCH (07:25)
[2016-10-29] MEDS: RAMIPRIL 5 MG CAPSULE (FP) PO SCH (09:54)
[2016-10-29] MEDS: PRENATAL VITAMINS W/ FOLIC ACID TABLET (FP) PO SCH (09:54)
[2016-10-29] MEDS: amLODIPine BESYLATE 10 MG TABLET (FP) PO SCH (09:54)
[2016-10-29] MEDS: IBUPROFEN 400 MG TABLET (FP) PO PRN (09:55)
== END 2016-10-29 10:05 | disposition home or self-care (01) | DRG 772 ==
LOC: YASAS 13:02 → Y3W 13:04
PROVIDERS: ADMIT Psychiatry & Neurology Psychiatry; ATTEND Psychiatry & Neurology Psychiatry
PROC: HZ42ZZZ Group Counseling for Substance Abuse Treatment, Cognitive-Behavioral (ICD-10-PCS; principal; 2016-10-05)
DX: F11.20 Opioid dependence, uncomplicated (principal); F14.20 Cocaine dependence, uncomplicated; F17.210 Nicotine dependence, cigarettes, uncomplicated; F19.24 Other psychoactive substance dependence with psychoactive substance-induced mood disorder; E11.42 Type 2 diabetes mellitus with diabetic polyneuropathy; Z79.4 Long term (current) use of insulin; K21.9 Gastro-esophageal reflux disease without esophagitis; I10 Essential (primary) hypertension; B18.2 Chronic viral hepatitis C
CPT/HCPCS: 36415; 80048